=== PATIENT | male | born 1995 ===

== ENCOUNTER 2023-09-22 16:06 | Emergency (ER) | payer OTHER, SELFPAY ==
[2023-09-22 17:14] VITALS: BP 116/68; PULSE 72; RESP 18; TEMP 36.8; O2SAT 97; BMI 21.1
--- NOTE | 2023-09-22 17:16 | ED_ITS ---
HPI - General Adult General Chief complaint: General Medical Stated complaint: Rib pain Time Seen by Provider: 09/22/23 18:28 Source: patient Mode of arrival: ambulatory Limitations: no limitations History of Present Illness HPI narrative: 28 yo male with no sig PMH had unprotected sex with a female back in July has had some burning intermittently at his penis just found out she had chlamydia he also has some R rib pain on and off that is cramping. complaint: STI exposure Onset (ago): month(s) (1) Location: abdomen Radiation: non-radiation Severity: mild Quality: burning Pain Consistency: intermittent Relieving factors: none Exacerbating factors: other (urination) Associated symptoms: denies other symptoms Treatments prior to arrival: none Related Data Previous Rx's Medication Instructions Recorded doxycycline hyclate 100 mg capsule 100 mg PO BID 7 days #13 caps 09/22/23 Allergies Allergy/AdvReac Type Severity Reaction Status Date / Time No Known Allergies Allergy Verified 09/22/23 17:12 Review of Systems 2 Review of Systems: Constitutional : No Weight loss, No Fever, No Chills, ENT/Mouth : No Hearing loss, No Ear Pain, No Nasal Congestion, No Sinus Pain, No Hoarseness, No sore throat, No Rhinorrhea, No Swallowing Difficulty Cardiovascular : No Chest Pain, No SOB Respiratory : No Cough, No Dyspnea Gastrointestinal : No Nausea, No Vomiting, No Diarrhea, No abdominal Pain, No Hematochezia, No Melena Genitourinary : pos Dysuria, No Urinary Frequency, No Hematuria, No Urinary Incontinence, Musculoskeletal : positive back pain Skin : No Skin Lesions, No rash Neuro : No Weakness, No Numbness All other systems reviewed and are negative [facility] Past Medical History Attestation statement: The following information was validated with the patient. Medical History No pertinent past medical history Social History Social History Advance Directives: No Advance Directives Information Provided: No Physical Exam ED Vital Signs: Vital Signs - 24 hr 09/22/23 17:14 Temperature 98.2 F Pulse Rate 72 Respiratory Rate 18 Blood Pressure 116/68 Pulse Oximetry 97 Oxygen Delivery Method Room Air BMI result Body Mass Index 21.1 Appearance: Alert. Oriented X3. No acute distress. Eyes: Pupils equal, round and reactive to light. ENT: Pharynx normal. Neck: Normal inspection. Neck supple. CVS: Normal heart rate and rhythm. Pulses normal. Respiratory: No respiratory distress. Breath sounds normal. Abdomen: Soft and nontender. Skin: Skin warm and dry. Normal skin color. Normal skin turgor. Extremities: No lower extremity edema. Neuro: Oriented X 3. No motor deficit. No sensory deficit. Course Course Course Narrative: This is an RME: Additional HPI, ROS, PE not included below will be deferred to primary provider. patient is a 28-year-old male presents to the ED for intermittent R ABD pain, started in the back and has now present in the abdomen, denies hematuria, history of calculi. Reports dysuria. states he had intercourse in July 2023 and was just made aware that this person tested positive for chlamydia. Denies penile discharge. Plan: labs, urinalysis, CT/ NG Medical Decision Making Medical Decision Making [facility] Narrative: 28 yo male with no sig PMH here with burning and intermittent abdominal pain with normal labs but known chlamydiea exposure at this time abdominal exam is benign will obtain basic labs, treat for chlamydia and instruct if the patinet's pain is not resolve to return for further care Differential Diagnosis Differential Diagnoses: The differential diagnosis associated with the presentation includes STI exposure Admission/Observation Consideration of admission/observation: Escalation of care including admission/observation considered labs stable, abdominal exam benign stable for DC Lab Data [facility] Lab Attestation statement: I reviewed the patient's lab results. 09/22/23 18:01 09/22/23 18:01 Labs: Lab Results 09/22/23 09/22/23 Range/Units 18:01 18:28 WBC 10.3 (4.8-10.8) X10*3/uL RBC 5.38 (4.60-5.80) X10*6/uL Hgb 15.9 (14.0-18.0) g/dl Hct 46.5 (42.0-52.0) % MCV 86.4 (80.0-98.0) fL MCH 29.6 (27.0-33.0) pg MCHC 34.2 (31.0-36.0) g/dl RDW 12.7 (11.0-16.0) % Plt Count 209 (160-400) X10*3/uL MPV 8.5 L (9.4-12.4) fL Immature Gran % (Auto) 0.2 (0.0-0.4) % Neut % (Auto) 63.4 (45-73) % Lymph % (Auto) 28.3 (20-40) % [place] % (Auto) 7.4 (2-11) % Eos % (Auto) 0.4 (0-4) % Baso % (Auto) 0.3 (0-2) % Lymph # (Auto) 2.9 (1.2-4.9) X10*3/uL [place] # (Auto) 0.8 (0.1-1.2) X10*3/uL Eos # (Auto) 0.0 (0.0-0.4) X10*3/uL Baso # (Auto) 0.0 (0.0-0.2) X10*3/uL Abs Immat Gran (auto) 0.02 (0.00-0.03) X10*3/uL Absolute Neuts (auto) 6.5 (2.0-8.3) x10*3/uL Absolute Nucleated RBC 0.000 (0.0-0.012) X10*3/uL Nucleated RBC % (auto) 0.0 (0.0-0.2) /100WBC Sodium 136 (135-145) mmol/L Potassium 4.5 (3.3-5.1) mmol/L Chloride 103 (96-108) mmol/L Carbon Dioxide 28 (22-29) mmol/L Anion Gap 10 L (12-20) BUN 16 (9-16) mg/dL Creatinine 0.80 (0.5-1.4) mg/dL Estim Creat Clear Calc 147.4 Estimated GFR > 60 Random Glucose 85 (60-115) mg/dL Calcium 9.6 (8.4-10.2) mg/dL Total Bilirubin 0.3 (0.0-1.0) mg/dL AST 16 (5-37) U/L ALT 8 (0-40) U/L Alkaline Phosphatase 47 (39-117) U/L Total Protein 7.7 (6.5-8.0) g/dL Albumin 4.6 (3.5-5.0) g/dL Lipase 21 (8-78) U/L Urine Color Yellow Urine Appearance Clear Urine pH 5.5 (5.0-9.0) Ur Specific [place] 1.020 (1.005-1.025) Urine Protein Negative (Neg-Trace) mg/dL Urine Glucose (UA) Negative (Negative) mg/dL Urine Ketones Negative (Negative) mg/dL Urine Blood Negative (Negative) Urine Nitrite Negative (Negative) Ur Leukocyte Esterase Negative (Negative) Prescription Management I considered prescription management with: Antibiotic Discharge Plan Discharge Clinical Impression: Sexually transmitted disease exposure Patient Disposition: Home, Self-Care Instructions: Chlamydia (ED) Additional Instructions: your STD tests are pending we will call you if positive. take and finish the antibiotics. practice safe sex. no sex for 1 week. if your pain in rib area is still persistent after treatment please get looked at again. return for worsening symptoms, fevers, pain or any other concerns. On doxycycline, do not take pills immediately before going to bed and swallow pills with plenty of water. Avoid direct sunlight, iron, antacids, and Pepto Bismol. Call your provider if you develop new ringing in your ears, new problems hearing, dizziness, difficulty swallowing, rash, abdominal discomfort, nausea, or diarrhea.? Prescriptions: New doxycycline hyclate 100 mg capsule 100 mg PO BID 7 Days Qty: 13 0RF
[2023-09-22 18:07] LABS: MANUAL DIFF FLAG NO
[2023-09-22 18:09] LABS: Basophils Percent Auto 0.3 % (0-2); Eosinophils Percent Auto 0.4 % (0-4); Hematocrit 46.5 % (42.0-52.0); Hemoglobin 15.9 g/dl (14.0-18.0); Imm Gran Abs Auto 0.02 X10*3/uL (0.00-0.03); Imm Gran Pct Auto 0.2 % (0.0-0.4); Lymphocytes Absolute Auto 2.9 X10*3/uL (1.2-4.9); Lymphocytes Percent Auto 28.3 % (20-40); Mean Corpuscular HGB Conc 34.2 g/dl (31.0-36.0); Mean Corpuscular Hemoglobin 29.6 pg (27.0-33.0); Mean Corpuscular Volume 86.4 fL (80.0-98.0); Mean Platelet Volume 8.5 fL (9.4-12.4); Monocytes Absolute Auto 0.8 X10*3/uL (0.1-1.2); Monocytes Percent Auto 7.4 % (2-11); Neutrophils Absolute Auto 6.5 x10*3/uL (2.0-8.3); Neutrophils Percent Auto 63.4 % (45-73); Platelet Count 209 X10*3/uL (160-400); Red Blood Count 5.38 X10*6/uL (4.60-5.80); Red Cell Distribution Width 12.7 % (11.0-16.0); White Blood Count 10.3 X10*3/uL (4.8-10.8)
[2023-09-22 18:25] LABS: Alanine Aminotransferase 8 U/L (0-40); Albumin Level 4.6 g/dL (3.5-5.0); Alkaline Phosphatase 47 U/L (39-117); Anion Gap 10 (12-20); Aspartate Amino Transferase 16 U/L (5-37); Bilirubin Total 0.3 mg/dL (0.0-1.0); Blood Urea Nitrogen 16 mg/dL (9-16); Calcium 9.6 mg/dL (8.4-10.2); Carbon Dioxide 28 mmol/L (22-29); Chloride 103 mmol/L (96-108); Creatinine Clr Calc Pharmacy 147.4; Estimated Glomerular Filt Rate > 60; Glucose Random 85 mg/dL (60-115); Lipase 21 U/L (8-78); Potassium 4.5 mmol/L (3.3-5.1); Sodium 136 mmol/L (135-145); Total Protein 7.7 g/dL (6.5-8.0)
[2023-09-22 18:38] LABS: Appearance Urine Clear; Color Urine Yellow; Glucose Urine UA Negative (Negative); Leukocyte Esterase Urine Negative (Negative); Nitrite Urine Negative (Negative); PH 5.5 (5.0-9.0); Urine Blood Negative (Negative); Urine Ketones Negative (Negative); Urine Protein Negative (Neg-Trace)
--- OUTSIDE RECORDS SUMMARY | 2023-09-22 18:38 | XMS_ITS | Continuity of Care Document ---
Author Name Unknown Organization [facility] Address [address] [place] [address]- Care Team Providers Care Pharmacy Technician Instructor Name Role Phone Karen ARTEAGA, Jed Chavarria Primary Care Physician [phone] [facility] Date(s): 12/06/21 - 12/13/21 [facility] [address] [place] [address]- Attending Physician: Ce Awad MD Referring Physician: Not on Staff, Referring
--- OUTSIDE RECORDS SUMMARY | 2023-09-22 18:38 | XMS_ITS | Continuity of Care Document ---
Author Name Unknown Organization [facility] Address [address] [place] [address]- Care Team Providers Care Orchestrator Name Role Phone Karen ARTEAGA, Jed Chavarria Primary Care Physician [phone] [place] [facility] [facility] [place] [id number] Date(s): 12/06/21 - 01/05/22 [facility] [address] [place] [address]- Attending Physician: Yunior Richard Admitting Physician: Yunior Richard Referring Physician: Yunior Richard
[2023-09-22] MEDS: Doxycycline Monohydrate 100 MG CAPSULE PO (19:11)
[2023-09-23 03:24] LABS: CT PCR NOT DETECTED (Not Detect.); NG PCR NOT DETECTED (Not Detect.)
== END 2023-09-22 19:18 | disposition home or self-care (01) ==
PROVIDERS: Nurse Practitioner Family; Emergency Provider Emergency Medicine
DX: R07.81 Pleurodynia (principal); N48.89 Other specified disorders of penis; Z20.2 Contact with and (suspected) exposure to infections with a predominantly sexual mode of transmission; Z79.899 Other long term (current) drug therapy
CPT/HCPCS: 0353U; 36415; 80053; 81003; 83690; 85025; 99282; 99283

== ENCOUNTER 2023-11-10 15:55 | Emergency (ER) | payer OTHER, SELFPAY ==
[2023-11-10 18:38] VITALS: BP 107/47; PULSE 62; RESP 16; TEMP 36.6; O2SAT 95; BMI 21.2
--- NOTE | 2023-11-10 19:07 | ED_ITS ---
HPI - General Adult General Chief complaint: Eye Problems Stated complaint: possible pinkeye Time Seen by Provider: 11/10/23 19:07 Source: patient and RN notes reviewed Limitations: no limitations History of Present Illness HPI narrative: 28-year-old male who denies significant past medical history presents for evaluation of pain to the right eye. Patient states that 1 week ago he ended up sleeping with his contacts in. Since that time he had irritation to the right eye. Patient states that he continue to wear his contacts during this time. He also reports redness, and swelling of the eyelid. This has since improved however the patient still has residual redness. He denies any tearing. No diplopia or blurred vision. He denies any trauma. Patient reports history of similar symptoms in the past. Related Data Previous Rx's Medication Instructions Recorded doxycycline hyclate 100 mg capsule 100 mg PO BID 7 days #13 caps 09/22/23 ciprofloxacin HCl 0.3 % eye drops 1 drp ophthalmic-Right Q4H 7 days 11/10/23 #2.5 mL Allergies Allergy/AdvReac Type Severity Reaction Status Date / Time No Known Allergies Allergy Verified 11/10/23 18:41 Review of Systems Eyes: Eyes: Denies blind spots, Denies change in vision, Denies loss of peripheral vision, Denies other visual disturbances, Reports eye pain (Mild), Reports requires corrective lenses and Denies photophobia PMFSH Past Medical History Medical History No pertinent past medical history Social History Social History Alcohol intake: current Alcohol intake frequency: holidays/special occasions only Smoked in Last 30 Days: No Use of substances other than those prescribed or required for medical reasons: Yes Substance Use Type: Marijuana Advance Directives: No Physical Exam ED Vital Signs: Vital Signs - 24 hr 11/10/23 18:38 Temperature 98 F Pulse Rate 62 Respiratory Rate 16 Blood Pressure 107/47 L Pulse Oximetry 95 Oxygen Delivery Method Room Air BMI result Body Mass Index 21.2 Const General: alert and awake Orientation/consciousness: patient oriented x3 Eyes Other: Visual acuity and visual eldr[place] are intact. There is slight injection to the right eye. There is no draining or discharge. Patient currently has his contacts in both eyes. Patient removed the contact of the right eye per the provider's request without difficulty. Funduscopic on undilated eyes does not reveal any papilledema. Fluorescein staining demonstrates uptake at the 10 o'clock position over the iris. No Esteban sign. No foreign bodies noted under the lids. Direct Ophthalmoscopy: No photophobia Neuro General: patient oriented x3 Medications Administered Discontinued Medications Generic Name Dose Route Start Last Admin Trade Name Shira PRN Reason Stop Dose Admin Fluorescein Sodium 1 strip 11/10/23 19:09 11/10/23 19:21 Fluorescein Sodium Strip EYE-RIGHT 11/10/23 19:10 1 strip ONCE ONE Administration Tetracaine HCl 1 drop 11/10/23 19:09 11/10/23 19:21 Tetracaine Hcl 0.5% Oph [place] 5 Ml Drops EYE-RIGHT 11/10/23 19:10 1 drop ONCE ONE Administration Medical Decision Making Medical Decision Making MDM Narrative: 28-year-old male with redness and pain to the right eye secondary to prolonged and consistent contact lens use. Concern for corneal abrasion. Discussed with the patient possibility of corneal ulcer. However given that symptoms are improving less likely to be ulceration. Will provide ophthalmology follow-up. In addition I have had extensive discussion with the patient regarding proper care of his contact lenses and avoiding prolonged use. Also advised no contact use for at least 1 week to the right eye. Patient is in agreement with this. He also reports that he has a new set of contacts at home. Reviewed all discharge instructions. No further questions at this time. Differential Diagnosis Differential Diagnoses: The differential diagnosis associated with the present ation includes Iritis Corneal abrasion Conjunctivitis Foreign body Discharge Plan Discharge Clinical Impression: Abrasion, corneal Qualifiers: Encounter type: initial encounter Laterality: right Qualified Code(s): S05.01XA - Injury of conjunctiva and corneal abrasion without foreign body, right eye, initial encounter Patient Disposition: Home, Self-Care Instructions: Corneal Abrasion (ED) Additional Instructions: Do not sleep with your contacts. Do not wear the contact in your right eye for at least 1 week. Antibiotic drops as directed. Follow-up with community engagement specialist. Follow-up with your primary care provider. Call this week to schedule a follow- up appointment. Return to the emergency department if you have any worsening of symptoms, or any concerns. Get well soon! Prescriptions: New ciprofloxacin HCl 0.3 % drops 1 drp ophthalmic-Right Q4H 7 Days Qty: 2.5 0RF No Action doxycycline hyclate 100 mg capsule 100 mg PO BID 7 Days Qty: 13 0RF Referrals: Cristina CHARLES JR [Physician] - 1 week Stand Alone Forms: Work/School Release Interventions: ED Discharge Assessment Last Done: 11/10/23 19:58 Discharge Date/Time: 11/10/23 19:59
[2023-11-10] MEDS: Tetracaine HCl 0.5% Oph Sol 5 ML DROPS 1 DROP EYE-RIGHT (19:21)
[2023-11-10] MEDS: Fluorescein Sodium STRIP 1 STRIP EYE-RIGHT (19:21)
== END 2023-11-10 19:59 | disposition home or self-care (01) ==
PROVIDERS: Emergency Provider Student in an Organized Health Care Education/Training Program
DX: H18.821 Corneal disorder due to contact lens, right eye (principal); H57.11 Ocular pain, right eye
CPT/HCPCS: 99283; 99284

== ENCOUNTER 2024-05-10 19:56 | Emergency (ER) | payer OTHER, SELFPAY ==
[2024-05-10 19:57] VITALS: BP 116/74; PULSE 85; RESP 17; TEMP 37.1; O2SAT 96; BMI 19.6
--- NOTE | 2024-05-10 20:00 | ED.GENADULT ---
HPI - General Adult General Chief complaint: Wound/Laceration Stated complaint: Work inj - fing lac Time Seen by Provider: 05/10/24 21:14 Source: patient Mode of arrival: ambulatory Limitations: no limitations History of Present Illness ED Provider: Dr. Emerita Swift HPI narrative: patient comes to the emergency room complaining of a laceration to the dorsum of the thumb of the left hand. 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 Patient states that the pain is localized, states that he has no problem moving any of his fingers including the thumb. Patient is not sure when he had his last Tdap injection Related Data Previous Rx's ?Medication ?Instructions ?Recorded doxycycline hyclate 100 mg capsule 100 mg PO BID 7 days #13 caps 09/22/23 ciprofloxacin HCl 0.3 % eye drops 1 drp ophthalmic-Right Q4H 7 days 11/10/23 #2.5 mL Allergies Allergy/AdvReac Type Severity Reaction Status Date / Time No Known Allergies Allergy Verified 05/10/24 19:58 Review of Systems Review of Systems: Constitutional : No Weight loss, No Fever, No Chills, No Night Sweats, No Fatigue, No Malaise ENT/Mouth : No Hearing loss, No Ear Pain, No Nasal Congestion, No Sinus Pain, No Hoarseness, No sore throat, No Rhinorrhea, No Swallowing Difficulty Eyes: No Eye Pain, No Swelling, No Redness, No Foreign Body, No Discharge, No Vision Changes Cardiovascular : No Chest Pain, No SOB, No Dyspnea on Exertion, No Orthopnea, No Edema, No Palpitations Respiratory : No Cough, No Sputum, No Wheezing, No Smoke Exposure, No Dyspnea Gastrointestinal : No Nausea, No Vomiting, No Diarrhea, No Constipation, No abdominal Pain, No Hematochezia, No Melena Genitourinary : no irregular bleeding, No Dysuria, No Urinary Frequency, No Hematuria, No Urinary Incontinence, No Urgency, No Flank Pain, No Urinary Flow Changes, No Hesitancy Musculoskeletal : No joint pain, No Myalgias, No Joint Swelling Skin : complaining of a laceration to the dorsum of the thumb of the left hand Neuro : No Weakness, No Numbness, No Paresthesias, No Loss of Consciousness, No Dizziness, No Headache Psych : No Anxiety/Panic, No Depression, No SI/HI/AH/VH, No Social Issues, Heme/Lymph: No Bruising, No Bleeding,No Lymphadenopathy Endocrine : No Polyuria, No Polydipsia, No Temperature Intolerance [facility] Past Medical History Medical History No pertinent past medical history Social History Social History Alcohol intake: current Alcohol intake frequency: holidays/special occasions only Substance Use Type: Marijuana Advance Directives: No Advance Directives Information Provided: No Do you have a plan to hurt others: No Plan Physical Exam ED Vital Signs: Vital Signs - 24 hr 05/10/24 19:57 Temperature 98.7 F Pulse Rate 85 Respiratory Rate 17 Blood Pressure 116/74 Pulse Oximetry 96 Oxygen Delivery Method Room Air BMI result Body Mass Index 19.6 Const Other: Appearance: Alert. Oriented X3. No acute distress. Eyes: Pupils equal, round and reactive to light. ENT: Pharynx normal. Neck: Normal inspection. Neck supple. No lymph nodes noted. No crepitus CVS: Normal heart rate and rhythm. Pulses normal. Normal S1 and S2 Respiratory: No respiratory distress. Breath sounds normal. No Wheezing. No rales Abdomen: Soft and nontender. No rigidity. No distention. Skin: Skin warm and dry. Normal skin color. Normal skin turgor. Extremities: No lower extremity edema. No Lacerations. No Rash, there is a 2 cm laceration to the dorsum of the thumb of the left hand. Bleeding controlled. Patient able to flex and extend the thumb and oppose the thumb. Neuro: Oriented X 3. No motor deficit. No sensory deficit. Moving all extremities. No slurred speech. CN 2 through 12 grossly intact Psych: calm, cooperative, normal affect Course Course Course Narrative: RME performed by Leona Osborne PA-C. Patient is a 29 year old assigned male at presenting to the emergency department with a left thumb laceration. 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 Detailed physical exam and review of systems are deferred to the rigging and controls aircraft mechanic. Patient placed back in the waiting room pending room availability. Medications Administered Discontinued Medications Generic Name Dose Route Start Last Admin Trade Name Freq PRN Reason Stop Dose Admin Diphtheria/Tetanus/Acell Pertussis 0.5 ml 05/10/24 21:33 05/10/24 21:40 Diphth,Pertus(Acell),Tet Adult 0.5 Ml Syringe IM 05/10/24 21:34 0.5 ml .ONCE ONE Administration Lidocaine HCl 6 ml 05/10/24 21:33 05/10/24 21:40 Lidocaine Hcl 2% 2 Ml Vial INFILTRATI 05/10/24 21:34 6 ml ONCE ONE Administration Procedures Laceration Laceration 1: Site: hand Side (If applicable): left and right Size (cm): 2 Description: linear Depth: simple, single layer Local Anesthetic: lidocaine 2% Amount of anesthesia used (mL): 5 Pre-repair: wound explored Skin layer closed with: nylon Size (cm): 4-0 Number of sutures: 5 Technique: simple, interrupted Medical Decision Making Medical Decision Making MDM Narrative: - I discussed the physical exam with the patient, patient will need stitches. Patient is thumb movement no position within normal limits. No tendons visualized. wound was visualized under a bloodless field. - Patient received 5 stitches - received Tdap booster Discharge Plan Discharge Clinical Impression: Laceration Patient Disposition: Home, Self-Care Instructions: Finger Laceration (ED) Additional Instructions: your stitches need to be removed in 7-10 days. Please follow-up with your primary care physician tomorrow. If you have any worsening or new symptoms, please return to the emergency room or call 911 Prescriptions: No Action ciprofloxacin HCl 0.3 % drops 1 drp ophthalmic-Right Q4H 7 Days Qty: 2.5 0RF doxycycline hyclate 100 mg capsule 100 mg PO BID 7 Days Qty: 13 0RF Stand Alone Forms: Work/School Release Print Language: Yoruba
[2024-05-10] MEDS: Diphth,Pertus(ACell),Tet Adult 0.5 ML SYRINGE IM (21:40)
[2024-05-10 21:56] VITALS: BP 132/63; PULSE 61; RESP 18; TEMP 36.6; O2SAT 100
[2024-05-10 22:00] VITALS: BP 132/63; PULSE 61; RESP 18; TEMP 36.6; O2SAT 100
== END 2024-05-10 22:00 | disposition home or self-care (01) ==
PROVIDERS: Emergency Provider Emergency Medicine
DX: S61.011A Laceration without foreign body of right thumb without damage to nail, initial encounter (principal); S61.412A Laceration without foreign body of left hand, initial encounter; S61.411A Laceration without foreign body of right hand, initial encounter; W26.0XXA Contact with knife, initial encounter; Y93.9 Activity, unspecified; Y92.9 Unspecified place or not applicable; Y99.0 Civilian activity done for income or pay; Z23 Encounter for immunization
CPT/HCPCS: 12001; 90471; 90715; 99284

== ENCOUNTER 2024-05-11 12:49 | Emergency (ER) | payer OTHER, SELFPAY ==
[2024-05-11 13:02] VITALS: BP 128/79; PULSE 66; RESP 18; TEMP 36.7; O2SAT 98; BMI 19.3
--- NOTE | 2024-05-11 13:02 | ED_ITS ---
HPI - Skin/Abscess/Foreign Bdy General Chief complaint: Wound/Laceration Stated complaint: Suture came out L thumb Time Seen by Provider: 05/11/24 13:26 Source: patient and RN notes reviewed Mode of arrival: ambulatory Limitations: no limitations History of Present Illness ED Provider: Leni Mejia PA-C HPI narrative: This is a 29-year-old male who presents emergency department with complaints of left thumb wound check. 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 He states that he did not cover the wound and went to bed. He states that he awoke with blood all over his bed and feels as though 1 of his sutures popped out. He denies any fevers or chills. No other complaints or concerns at this time. MD complaint: laceration Onset (ago): day(s) Tetanus up to date: yes Relieving factors: none Exacerbating factors: none Context: none Related Data Previous Rx's ?Medication ?Instructions ?Recorded doxycycline hyclate 100 mg capsule 100 mg PO BID 7 days #13 caps 09/22/23 ciprofloxacin HCl 0.3 % eye drops 1 drp ophthalmic-Right Q4H 7 days 11/10/23 #2.5 mL cephalexin 500 mg capsule 500 mg PO QID 7 days #28 caps 05/11/24 Allergies Allergy/AdvReac Type Severity Reaction Status Date / Time No Known Allergies Allergy Verified 05/11/24 13:04 Review of Systems Review of Systems: Yes all other systems are reviewed and are negative Constitutional: Constitutional: Reports as per HPI [facility] Past Medical History Medical History No pertinent past medical history Social History Social History Alcohol intake: current Alcohol intake frequency: holidays/special occasions only Substance Use Type: Marijuana Advance Directives: No Advance Directives Information Provided: Yes Do you have a plan to hurt others: No Plan Physical Exam Vital Signs: Vital Signs: Last Vital Signs Temp 98.0 F 05/11/24 13:02 Pulse 66 05/11/24 13:02 Resp 18 05/11/24 13:02 BP 128/79 05/11/24 13:02 Pulse Ox 98 06/29/24 13:02 O2 Del Method Room Air 05/11/24 13:02 BMI result Body Mass Index 19.3 Const: General: cooperative, comfortable and no acute distress Orientation/consciousness: patient oriented x3 Limitations: no limitations HEENT: Head: Yes normal to inspection, Yes normocephalic and Yes atraumatic Ears: hearing grossly normal bilaterally General nose exam: Normal external nose present Face and sinus: Yes normal facial exam Mouth: Normal oral and palatal mucosa present, oropharynx normal and moist mucous membranes Throat: Yes posterior oropharynx normal Eyes: General: appearance normal, both eyes and all related structures Eyelids: Yes eyelids normal Conjunctivae: conjunctivae normal Sclerae: sclerae normal Pupils: Equal, round and reactive pupils present EOM: EOMs intact bilaterally Neck: Neck: Yes normal visual inspection, Yes full ROM and Yes no lymphadenopathy Lymphatic: no lymphadenopathy noted Chest: Chest palpation & inspection: normal inspection of the chest Resp: Effort & Inspection: normal respiratory effort and able to speak in complete sentences Auscultation: clear to auscultation bilaterally, no crackles, no rales, no rhonchi and no wheezes Cardio: Rate: regular rate Rhythm: regular rhythm Heart sounds: S1 normal heart sound present and S2 normal heart sound present GI: Inspection: Yes normal to inspection Skin: Other: Left thumb dorsal aspect there is a 2 cm linear laceration with [address] at the middle of the laceration there appears to be a missing suture. Some drainage noted, however still well approximated. Mild surrounding erythema and warmth extending to 1st MCP General skin exam: no rashes or lesions noted Trauma: no lacerations or abrasions Wounds: no wounds Neuro: General: patient oriented x3 and moves all extremities Cranial nerves: Yes Equal, round and reactive pupils present Extrem: General: Yes normal to inspection Right upper extremity: normal to inspection Left upper extremity: normal to inspection Right lower extremity: normal to inspection Left lower extremity: normal to inspection Course Course Course Narrative: This is a Rapid Medical Examination (RME) performed by Mana Cheney PA-C in triage. Full HPI, ROS, assessment and treatment plan per primary provider in the Main ED. 29 yo male here for suture check. patient seen in ED yesterday for left thumb laceration which was repaired with 5 sutures. reports waking up this am with blood all over his pillow, noticed the middle suture had popped open. on exam, [address], middle of the laceration open. bleeding controlled. Plan: ?repair Medical Decision Making Medical Decision Making [facility] Narrative: This is a 29-year-old male who presents emergency department with complaints of left thumb laceration. He was seen here yesterday where he had 5 sutures placed. He is here today as he believes 1 of his sutures popped out. On arrival, vital signs within normal limits. Left thumb with missing suture. Given wound is old, as well as wound still well approximated, he does not need a no other suture. However there is some mild erythema surrounding the wound therefore patient is started on Keflex. Given strict return precautions. He has full range of motion of his thumb without difficulty. Patient stable for discharge Differential Diagnosis Differential Diagnoses: The differential diagnosis associated with the presentation includes Cellulitis, wound dehiscence, laceration Admission/Observation Consideration of admission/observation: Escalation of care including admission/observation considered Escalation of care including admission/observation considered however given workup today not warranted at this time. Discharge Plan Discharge Clinical Impression: Encounter for re-check of laceration wound Patient Disposition: Home, Self-Care Instructions: Care For Your Stitches (ED), Laceration (ED) Additional Instructions: Your seen in the emergency department for a wound check It appears that 1 of the sutures that was placed popped out of the wound. Please keep wound clean and dry. Keep wound covered. Do not submerge wound. If it does get wet, pat dry. I am starting you on an antibiotic. Please take full course even if you are feeling better. Watch for any worsening signs including increased redness, swelling drainage. If any of these occur please return for re-evaluation Prescriptions: New cephalexin 500 mg capsule 500 mg PO QID 7 Days Qty: 28 0RF No Action ciprofloxacin HCl 0.3 % drops 1 drp ophthalmic-Right Q4H 7 Days Qty: 2.5 0RF doxycycline hyclate 100 mg capsule 100 mg PO BID 7 Days Qty: 13 0RF Print Language: Swazi
[2024-05-11 13:54] VITALS: BP 128/79; PULSE 66; RESP 18; TEMP 36.7; O2SAT 98
[2024-05-11] MEDS: Bacitracin Oint 0.9 GM PACKET 1 APPL TOPICAL (13:54)
== END 2024-05-11 13:54 | disposition home or self-care (01) ==
PROVIDERS: Emergency Provider Emergency Medicine
DX: Z04.2 Encounter for examination and observation following work accident (principal); Z48.00 Encounter for change or removal of nonsurgical wound dressing; S61.012D Laceration without foreign body of left thumb without damage to nail, subsequent encounter; W31.89XD Contact with other specified machinery, subsequent encounter
CPT/HCPCS: 99282; 99283

== ENCOUNTER 2024-08-19 10:28 | Emergency (ER) | payer SELFPAY ==
[2024-08-19 11:00] VITALS: BP 121/68; PULSE 88; RESP 19; TEMP 36.8; O2SAT 98; BMI 20.7
--- NOTE | 2024-08-19 11:03 | ED.GENADULT ---
HPI - General Adult General Chief complaint: Nausea/Vomiting/Diarrhea Stated complaint: vomiting overheating Time Seen by Provider: 08/19/24 12:47 Source: patient Mode of arrival: ambulatory Limitations: no limitations History of Present Illness ED Provider: Felice Hwang PA-C HPI narrative: 29 yo male presents to the ER for evaluation of nausea, vomiting x2 this morning and general malaise. mom home with similar symptoms and thinks it might be the flu. no abdominal pain, no longer nauseated. no fevers, chest pain or SOB. no coughing, no URI symptoms. feels better now, just getting intermittent hot flashes complaint: n/v, hot flashes Onset (ago): hour(s) Pain Consistency: intermittent Relieving factors: none Associated symptoms: denies other symptoms Treatments prior to arrival: none Related Data Previous Rx's ?Medication ?Instructions ?Recorded doxycycline hyclate 100 mg capsule 100 mg PO BID 7 days #13 caps 09/22/23 ciprofloxacin HCl 0.3 % eye drops 1 drp ophthalmic-Right Q4H 7 days 11/10/23 #2.5 mL cephalexin 500 mg capsule 500 mg PO QID 7 days #28 caps 05/11/24 ondansetron 4 mg disintegrating 4 mg PO Q8H PRN nausea and 08/19/24 tablet vomiting #4 tabs Allergies Allergy/AdvReac Type Severity Reaction Status Date / Time No Known Allergies Allergy Verified 08/19/24 11:02 Review of Systems Review of Systems: Yes all other systems are reviewed and are negative PMFSH Past Medical History Medical History No pertinent past medical history Social History Social History Alcohol intake: current Alcohol intake frequency: holidays/special occasions only Substance Use Type: Marijuana Advance Directives: No Advance Directives Information Provided: Yes Do you have a plan to hurt others: No Plan Physical Exam ED Vital Signs: Vital Signs - 24 hr 08/19/24 11:00 08/19/24 12:55 Temperature 98.3 F 98.3 F Pulse Rate 88 88 Respiratory Rate 19 19 Blood Pressure 121/68 121/68 Pulse Oximetry 98 98 Oxygen Delivery Method Room Air BMI result Body Mass Index 20.7 Appearance: Alert. Oriented X3. No acute distress. Head: normocephalic, atraumatic. Eyes: Pupils equal, round and reactive to light. ENT: Pharynx normal. No tonsillar swelling or exudate. Neck: Normal inspection. Neck supple. CVS: Normal heart rate and rhythm. Pulses normal. Respiratory: No respiratory distress. Breath sounds normal. Abdomen: Soft and nontender. +BS x4 Skin: Skin warm and dry. Normal skin color. Normal skin turgor. No rashes. Extremities: No lower extremity edema. No joint swelling. Neuro/psych: Oriented X 3. grossly normal, nonfocal Course Course Course Narrative: This is a Rapid Medical Examination (RME) performed by Felice Hwang PA-C in triage. Full HPI, ROS, assessment and treatment plan per primary provider in the Main ED. 29 yo male presents to the ER for evaluation of nausea, vomiting x2 this morning and general malaise. mom home with similar symptoms and thinks it might be the flu. no abdominal pain, no longer nauseated. no fevers, chest pain or SOB. VSS in triage Plan: viral PCR Medical Decision Making Medical Decision Making [facility] Narrative: 29 yo otherwise healthy male presenting to the ER for evaluation after he became nauseated and vomited x2 today. had hot flashes at work. mom is home sick with similar symptoms. VSS in triage. his exam is reassuring no abdominal pain or tenderness. viral PCR testing is negative. no vomiting here. he is feeling better. asking for a work note. comfortable w/ discharge home, supportive care, outpatient follow up and return if worsening. Differential Diagnosis Differential Diagnoses: The differential diagnosis associated with the presentation includes covid, flu, gastroenteritis, dehydration, low suspicion for acute abdominal process Lab Data [facility] Lab Attestation statement: I reviewed the patient's lab results. negative viral swab Labs: Lab Results 08/19/24 Range/Units 11:05 Influenza Type A (PCR) NEGATIVE (Negative) Influenza Type B (PCR) NEGATIVE (Negative) RSV RNA Qual (PCR) NEGATIVE (Negative) SARS-CoV-2 RNA (RT-PCR) NEGATIVE (Negative) External Record Review External record reviewed: Prior outpatient labs Tests considered The following testing was considered but not selected: basic labs considered, low suspicion for dehydration or acute metabolic derangement Prescription Management I considered prescription management with: Antiviral and Other (antiemetic) Critical Care Time Critical Care Time Critical Care Time: No Discharge Plan Discharge Clinical Impression: Gastroenteritis Patient Disposition: Home, Self-Care Instructions: Gastroenteritis (DC) Additional Instructions: You tested negative for COVID, Flu, and RSV You most likely have a viral GI bug also known as gastroenteritis. Treatment is supportive care, symptoms usually resolve on their own in 48-72 hours. Recommend rest and plenty of oral hydration. Stick to a bland diet like soup and toast while you are not feeling well. Take the prescribed medication as needed for nausea. Recommend over the counter Pepto Bismol or Imodium for upset stomach and diarrhea. Follow up with your doctor as needed. If you develop new or worsening symptoms call 911 or come back to the ER for further evaluation. Prescriptions: New ondansetron 4 mg tablet,disintegrating 4 mg PO Q8H PRN (Reason: nausea and vomiting) Qty: 4 0RF No Action ciprofloxacin HCl 0.3 % drops 1 drp ophthalmic-Right Q4H 7 Days Qty: 2.5 0RF cephalexin 500 mg capsule 500 mg PO QID 7 Days Qty: 28 0RF doxycycline hyclate 100 mg capsule 100 mg PO BID 7 Days Qty: 13 0RF Stand Alone Forms: Work/School Release Interventions: ED Discharge Assessment Last Done: 08/19/24 12:55 Discharge Date/Time: 08/19/24 12:55 Print Language: Puerto Rican
[2024-08-19 11:49] LABS: Influenza A PCR NEGATIVE (Negative); Influenza B PCR NEGATIVE (Negative); Resp Syncy Virus RNA Qual PCR NEGATIVE (Negative); SARS COV2 PCR INHOUSE NEGATIVE (Negative)
[2024-08-19 12:55] VITALS: BP 121/68; PULSE 88; RESP 19; TEMP 36.8; O2SAT 98
== END 2024-08-19 12:55 | disposition home or self-care (01) ==
LOC: HO.ED 12:54
PROVIDERS: Physician Assistant; Emergency Provider Emergency Medicine
DX: K52.9 Noninfective gastroenteritis and colitis, unspecified (principal); R11.2 Nausea with vomiting, unspecified; Z03.818 Encounter for observation for suspected exposure to other biological agents ruled out; R53.81 Other malaise
CPT/HCPCS: 0241U; 99282; 99283

== ENCOUNTER 2024-08-20 17:21 | Emergency (ER) | payer SELFPAY ==
[2024-08-20 18:00] VITALS: BP 127/77; PULSE 79; RESP 18; TEMP 36.8; O2SAT 98; BMI 19.7
--- NOTE | 2024-08-20 18:04 | ED.GENADULT ---
HPI - General Adult General Chief complaint: Nausea/Vomiting/Diarrhea Stated complaint: GI Bug Time Seen by Provider: 08/20/24 20:21 Source: patient Mode of arrival: ambulatory Limitations: no limitations History of Present Illness ED Provider: heavenly CARABALLO narrative: Patient has been vomiting since yesterday about 2 times with nausea today only once no diarrhea was seen here yesterday came here as he was feeling sick earlier now feeling better no fever no chills patient's COVID and flu tests were negative yesterday Related Data Previous Rx's ?Medication ?Instructions ?Recorded doxycycline hyclate 100 mg capsule 100 mg PO BID 7 days #13 caps 09/22/23 ciprofloxacin HCl 0.3 % eye drops 1 drp ophthalmic-Right Q4H 7 days 11/10/23 #2.5 mL cephalexin 500 mg capsule 500 mg PO QID 7 days #28 caps 05/11/24 ondansetron 4 mg disintegrating 4 mg PO Q8H PRN nausea and 08/19/24 tablet vomiting #4 tabs Allergies Allergy/AdvReac Type Severity Reaction Status Date / Time No Known Allergies Allergy Verified 08/20/24 18:01 Review of Systems Review of Systems: Yes all other systems are reviewed and are negative [facility] Past Medical History Medical History No pertinent past medical history Social History Social History Alcohol intake: current Alcohol intake frequency: holidays/special occasions only Substance Use Type: Marijuana Advance Directives: No Advance Directives Information Provided: No Physical Exam ED Vital Signs: Vital Signs - 24 hr 08/20/24 18:00 08/20/24 21:06 Temperature 98.2 F 98.2 F Pulse Rate 79 79 Respiratory Rate 18 18 Blood Pressure 127/77 127/77 Pulse Oximetry 98 98 Oxygen Delivery Method Room Air Room Air BMI result Body Mass Index 19.7 Appearance: Alert. Oriented X3. No acute distress. Eyes: PERRLA, No Nystagmus ENT: Pharynx normal. Oral Mucosa moist Neck: Normal inspection. Neck supple. CVS: Normal heart rate and rhythm. Pulses normal. Respiratory: No respiratory distress. Equal air entry bilateral, no wheezing/rales/rhonchi Abdomen: Soft and nontender. Bowel sounds are present, no mass palpable, no CVA tenderness Skin: Skin warm and dry. Normal skin color. Normal skin turgor. Extremities: No lower extremity edema. No calf tenderness Neuro: Oriented X 3. Course Course Course Narrative: RME: 29-year-old male presents to ED for nausea fatigue vomiting. Patient was seen yesterday with similar symptoms and informed that he had gastroenteritis. Patient denies any abdominal pain just vomiting. Patient denies any longer having diarrhea. Abdominal exam benign. will order basic labs. Medical Decision Making Medical Decision Making [facility] Narrative: Patient with minor gastroenteritis feeling much better now no vomiting since a.m. taking p.o. fluids will discharge patient home Lab Data [facility] Lab Attestation statement: I reviewed the patient's lab results. 08/20/24 18:34 08/20/24 18:34 Labs: Lab Results 08/20/24 08/20/24 Range/Units 18:34 18:34 WBC 10.8 (4.8-10.8) X10*3/uL RBC 5.46 (4.60-5.80) X10*6/uL Hgb 16.2 (14.0-18.0) g/dl Hct 47.0 (42.0-52.0) % MCV 86.1 (80.0-98.0) fL MCH 29.7 (27.0-33.0) pg MCHC 34.5 (31.0-36.0) g/dl RDW 12.5 (11.0-16.0) % Plt Count 212 (160-400) X10*3/uL MPV 8.9 L (9.4-12.4) fL Immature Gran % (Auto) 0.2 (0.0-0.4) % Neut % (Auto) 64.4 (45-73) % Lymph % (Auto) 27.0 (20-40) % Mathews % (Auto) 7.6 (2-11) % Eos % (Auto) 0.4 (0-4) % Baso % (Auto) 0.4 (0-2) % Lymph # (Auto) 2.9 (1.2-4.9) X10*3/uL Mathews # (Auto) 0.8 (0.1-1.2) X10*3/uL Eos # (Auto) 0.0 (0.0-0.4) X10*3/uL Baso # (Auto) 0.0 (0.0-0.2) X10*3/uL Abs Immat Gran (auto) 0.02 (0.00-0.03) X10*3/uL Absolute Neuts (auto) 7.0 (2.0-8.3) x10*3/uL Absolute Nucleated RBC 0.000 (0.0-0.012) X10*3/uL Nucleated RBC % (auto) 0.0 (0.0-0.2) /100WBC Sodium 139 (135-145) mmol/L Potassium 4.5 (3.3-5.1) mmol/L Chloride 106 (96-108) mmol/L Carbon Dioxide 28 (22-29) mmol/L Anion Gap 10 L (12-20) BUN 25 H (9-16) mg/dL Creatinine 1.03 (0.5-1.4) mg/dL Estim Creat Clear Calc 111.9 Estimated GFR > 60 Random Glucose 90 (60-115) mg/dL Calcium 9.9 (8.4-10.2) mg/dL Total Bilirubin 0.3 (0.0-1.0) mg/dL AST 19 (5-37) U/L ALT 13 (0-40) U/L Alkaline Phosphatase 47 (39-117) U/L Total Protein 7.7 (6.5-8.0) g/dL Albumin 4.5 (3.5-5.0) g/dL Lipase 21 21 (8-78) U/L Urine Color Yellow Urine Appearance Clear Urine pH 5.5 (5.0-9.0) Ur Specific [place] >= 1.030 H (1.005-1.025) Urine Protein Negative (Neg-Trace) mg/dL Urine Glucose (UA) Negative (Negative) mg/dL Urine Ketones Negative (Negative) mg/dL Urine Blood Negative (Negative) Urine Nitrite Negative (Negative) Ur Leukocyte Esterase Negative (Negative) Discharge Plan Discharge Clinical Impression: Nausea & vomiting Patient Disposition: Home, Self-Care Instructions: Acute Nausea and Vomiting (ED) Additional Instructions: Drink plenty of fluid Take nausea medication as prescribed yesterday for vomiting as needed Follow with PCP if any concerns Prescriptions: No Action ciprofloxacin HCl 0.3 % drops 1 drp ophthalmic-Right Q4H 7 Days Qty: 2.5 0RF cephalexin 500 mg capsule 500 mg PO QID 7 Days Qty: 28 0RF ondansetron 4 mg tablet,disintegrating 4 mg PO Q8H PRN (Reason: nausea and vomiting) Qty: 4 0RF doxycycline hyclate 100 mg capsule 100 mg PO BID 7 Days Qty: 13 0RF Stand Alone Forms: Work/School Release Interventions: ED Discharge Assessment Last Done: 08/20/24 21:06 Discharge Date/Time: 08/20/24 21:07 Print Language: Icelandic
[2024-08-20 18:39] LABS: MANUAL DIFF FLAG NO
[2024-08-20 18:40] LABS: Basophils Percent Auto 0.4 % (0-2); Eosinophils Percent Auto 0.4 % (0-4); Hemoglobin 16.2 g/dl (14.0-18.0); Imm Gran Abs Auto 0.02 X10*3/uL (0.00-0.03); Imm Gran Pct Auto 0.2 % (0.0-0.4); Lymphocytes Absolute Auto 2.9 X10*3/uL (1.2-4.9); Mean Corpuscular HGB Conc 34.5 g/dl (31.0-36.0); Mean Corpuscular Hemoglobin 29.7 pg (27.0-33.0); Mean Corpuscular Volume 86.1 fL (80.0-98.0); Mean Platelet Volume 8.9 fL (9.4-12.4); Monocytes Absolute Auto 0.8 X10*3/uL (0.1-1.2); Monocytes Percent Auto 7.6 % (2-11); Neutrophils Percent Auto 64.4 % (45-73); Platelet Count 212 X10*3/uL (160-400); Red Blood Count 5.46 X10*6/uL (4.60-5.80); Red Cell Distribution Width 12.5 % (11.0-16.0); White Blood Count 10.8 X10*3/uL (4.8-10.8)
[2024-08-20 18:41] LABS: Appearance Urine Clear; Color Urine Yellow; Glucose Urine UA Negative (Negative); Leukocyte Esterase Urine Negative (Negative); Nitrite Urine Negative (Negative); PH 5.5 (5.0-9.0); Specific Gravity - Urine >= 1.030 (1.005-1.025); Urine Blood Negative (Negative); Urine Ketones Negative (Negative); Urine Protein Negative (Neg-Trace)
[2024-08-20 18:53] LABS: Lipase 21 U/L (8-78)
[2024-08-20 18:55] LABS: Alanine Aminotransferase 13 U/L (0-40); Albumin Level 4.5 g/dL (3.5-5.0); Alkaline Phosphatase 47 U/L (39-117); Anion Gap 10 (12-20); Aspartate Amino Transferase 19 U/L (5-37); Bilirubin Total 0.3 mg/dL (0.0-1.0); Blood Urea Nitrogen 25 mg/dL (9-16); Calcium 9.9 mg/dL (8.4-10.2); Carbon Dioxide 28 mmol/L (22-29); Chloride 106 mmol/L (96-108); Creatinine Clr Calc Pharmacy 111.9; Estimated Glomerular Filt Rate > 60; Glucose Random 90 mg/dL (60-115); Lipase 21 U/L (8-78); Potassium 4.5 mmol/L (3.3-5.1); Sodium 139 mmol/L (135-145); Total Protein 7.7 g/dL (6.5-8.0)
[2024-08-20 21:06] VITALS: BP 127/77; PULSE 79; RESP 18; TEMP 36.8; O2SAT 98
== END 2024-08-20 21:07 | disposition home or self-care (01) ==
PROVIDERS: Physician Assistant; Emergency Provider Internal Medicine
DX: K52.9 Noninfective gastroenteritis and colitis, unspecified (principal); R11.2 Nausea with vomiting, unspecified; F12.90 Cannabis use, unspecified, uncomplicated
CPT/HCPCS: 36415; 80053; 81003; 83690; 85025; 99282; 99283

== ENCOUNTER 2024-11-25 20:31 | Emergency (ER) | payer OTHER, SELFPAY ==
[2024-11-25 21:52] VITALS: BP 118/67; PULSE 82; RESP 18; TEMP 37; O2SAT 97; BMI 21.3
[2024-11-25 22:18] LABS: MANUAL DIFF FLAG NO
[2024-11-25 22:21] LABS: Basophils Percent Auto 0.2 % (0-2); Eosinophils Percent Auto 0.1 % (0-4); Hematocrit 43.4 % (42.0-52.0); Imm Gran Abs Auto 0.05 X10*3/uL (0.00-0.03); Imm Gran Pct Auto 0.4 % (0.0-0.4); Lymphocytes Percent Auto 7.5 % (20-40); Mean Corpuscular HGB Conc 34.6 g/dl (31.0-36.0); Mean Corpuscular Hemoglobin 29.5 pg (27.0-33.0); Mean Corpuscular Volume 85.4 fL (80.0-98.0); Mean Platelet Volume 8.6 fL (9.4-12.4); Monocytes Absolute Auto 0.9 X10*3/uL (0.1-1.2); Monocytes Percent Auto 6.2 % (2-11); Neutrophils Absolute Auto 11.7 x10*3/uL (2.0-8.3); Neutrophils Percent Auto 85.6 % (45-73); Platelet Count 264 X10*3/uL (160-400); Red Blood Count 5.08 X10*6/uL (4.60-5.80); Red Cell Distribution Width 13.1 % (11.0-16.0); White Blood Count 13.7 X10*3/uL (4.8-10.8)
[2024-11-25 22:39] LABS: Alanine Aminotransferase 19 U/L (0-40); Albumin Level 3.9 g/dL (3.5-5.0); Alkaline Phosphatase 43 U/L (39-117); Anion Gap 12 (12-20); Aspartate Amino Transferase 22 U/L (5-37); Bilirubin Total 0.5 mg/dL (0.0-1.0); Blood Urea Nitrogen 12 mg/dL (9-16); Calcium 8.7 mg/dL (8.4-10.2); Carbon Dioxide 26 mmol/L (22-29); Chloride 106 mmol/L (96-108); Creatinine Clr Calc Pharmacy 166.1; Estimated Glomerular Filt Rate > 60; Potassium 3.8 mmol/L (3.3-5.1); Sodium 140 mmol/L (135-145); Total Protein 6.9 g/dL (6.5-8.0)
[2024-11-25 22:47] LABS: Appearance Urine Clear; Color Urine Yellow; Glucose Urine UA Negative (Negative); Leukocyte Esterase Urine Negative (Negative); Nitrite Urine Negative (Negative); PH 5.5 (5.0-9.0); Specific Gravity - Urine 1.025 (1.005-1.025); Urine Blood Negative (Negative); Urine Ketones Negative (Negative); Urine Protein Negative (Neg-Trace)
[2024-11-25 22:49] LABS: Bacteria Urine None Seen (None Seen); Hyaline Casts Urine 0-2 /LPF (0-2); RBC Urine 0-2 /HPF (0-2); WBC Urine 0-5 /HPF (0-5)
[2024-11-25 22:50] LABS: Glucose Random 109 mg/dL (60-115)
[2024-11-26 02:00] VITALS: BP 124/58; PULSE 66; RESP 18; TEMP 37.6; O2SAT 97
[2024-11-26] MEDS: Ketorolac Tromethamine 15 MG/ML VIAL IVPUSH (02:31)
[2024-11-26] MEDS: 0.9 % Sodium Chloride 1,000 ML 999 ML IV (02:32)
[2024-11-26] MEDS: ondansetron HCL 4 MG/2 ML VIAL IVPUSH (02:32)
--- NOTE | 2024-11-26 03:15 | ED_ITS ---
HPI - Nausea/Vomiting/Diarrhea General Chief complaint: Nausea/Vomiting/Diarrhea Stated complaint: vomitting x2days Time Seen by Provider: 11/26/24 02:01 Source: patient Limitations: no limitations History of Present Illness ED Provider: Natalia Santiago PA-C HPI Narrative: 29-year-old male presents with nausea vomiting diarrhea x2 days. The diarrhea has been going to subside, however the patient is still nauseous and vomiting. Denies abdominal pain, fever, cough cold symptoms or sick contacts with same symptoms. No recent hospitalization, use the antibiotics or travel. Associated nausea: Yes Related Data Previous Rx's ?Medication ?Instructions ?Recorded doxycycline hyclate 100 mg capsule 100 mg PO BID 7 days #13 caps 09/22/23 ciprofloxacin HCl 0.3 % eye drops 1 drp ophthalmic-Right Q4H 7 days 11/10/23 #2.5 mL cephalexin 500 mg capsule 500 mg PO QID 7 days #28 caps 05/11/24 ondansetron 4 mg disintegrating 4 mg PO Q8H PRN nausea and 08/19/24 tablet vomiting #4 tabs ondansetron HCl 4 mg tablet 4 mg PO Q8H PRN nausea and 11/26/24 vomiting #10 tabs Allergies Allergy/AdvReac Type Severity Reaction Status Date / Time No Known Allergies Allergy Verified 11/25/24 21:55 Review of Systems 2 Review of Systems: Yes all other systems are reviewed and are negative Constitutional: Constitutional: Denies fatigue and Denies fever(s) Cardiovascular: Cardiovascular: Denies chest pain Respiratory: Respiratory: Denies cough Gastrointestinal: Gastrointestinal: Denies abdominal pain, Reports diarrhea, Reports nausea and Reports vomiting Endocrine: Endocrine: Denies fatigue PMF Past Medical History Attestation statement: The following information was validated with the patient. Medical History No pertinent past medical history Social History Social History Alcohol intake: current Alcohol intake frequency: holidays/special occasions only Smoked in Last 30 Days: No Use of substances other than those prescribed or required for medical reasons: No Substance Use Type: Marijuana Advance Directives: No Advance Directives Information Provided: Yes Physical Exam 2 Vital Signs: Vital Signs: Last Vital Signs Temp 99.6 F 11/26/24 02:00 Pulse 66 11/26/24 02:00 Resp 18 11/26/24 02:00 BP 124/58 L 11/26/24 02:00 Pulse Ox 97 11/26/24 02:00 O2 Del Method Room Air 11/26/24 02:00 BMI result Body Mass Index 21.3 Const: Other: Alert well-appearing Orientation/consciousness: patient oriented x3 Resp: Effort & Inspection: normal respiratory effort Cardio: Other: Normal peripheral perfusion GI: Other: Soft nondistended nontender no guarding Skin: Other: Warm dry no rash Neuro: General: patient oriented x3, no focal motor deficits and CN's II-XI intact bilaterally Psych: Other: Cooperative Medications Administered Discontinued Medications Generic Name Dose Route Start Last Admin Trade Name Freq PRN Reason Stop Dose Admin Sodium Chloride 1,000 mls @ 999 mls/hr 11/26/24 02:15 11/26/24 02:32 Ns IV 11/26/24 03:15 999 mls/hr .Q1H1M WILLIAM Administration Ketorolac Tromethamine 15 mg 11/26/24 02:26 11/26/24 02:31 Ketorolac Tromethamine 15 Mg/Ml Vial IVPUSH 11/26/24 02:27 15 mg ONCE ONE Administration Ondansetron HCl 4 mg 11/26/24 02:01 11/26/24 02:32 Ondansetron Hcl 4 Mg/2 Ml Vial IVPUSH 11/26/24 02:02 4 mg ONCE ONE Administration Medical Decision Making Medical Decision Making MDM Narrative: 29-year-old male presents with nausea vomiting diarrhea x2 days. The diarrhea has been going to subside, however the patient is still nauseous and vomiting. Denies abdominal pain, fever, cough cold symptoms or sick contacts with same symptoms. No recent hospitalization, use the antibiotics or travel. No chronic issues History: Per patient I have considered the following differential diagnoses: Viral gastroenteritis, diverticulitis, C diff, traveler's diarrhea Plan: This is likely viral gastroenteritis given such illness has been prevalent within the community. Screening labs were already obtained from triage, they are unremarkable. Patient's abdominal exam was unremarkable, no indication for imaging. He has no risk factors for C diff or traveler's diarrhea. We will be giving IV fluid And antiemetic. I have independently reviewed the following tests: Labs: Leukocytosis, not anemic, no electrolyte abnormality Lab Data 11/25/24 22:14 11/25/24 22:14 Labs: Lab Results 11/25/24 11/25/24 Range/Units 22:14 22:35 WBC 13.7 H (4.8-10.8) X10*3/uL RBC 5.08 (4.60-5.80) X10*6/uL Hgb 15.0 (14.0-18.0) g/dl Hct 43.4 (42.0-52.0) % MCV 85.4 (80.0-98.0) fL MCH 29.5 (27.0-33.0) pg MCHC 34.6 (31.0-36.0) g/dl RDW 13.1 (11.0-16.0) % Plt Count 264 (160-400) X10*3/uL MPV 8.6 L (9.4-12.4) fL Immature Gran % (Auto) 0.4 (0.0-0.4) % Neut % (Auto) 85.6 H (45-73) % Lymph % (Auto) 7.5 L (20-40) % Coal % (Auto) 6.2 (2-11) % Eos % (Auto) 0.1 (0-4) % Baso % (Auto) 0.2 (0-2) % Lymph # (Auto) 1.0 L (1.2-4.9) X10*3/uL Coal # (Auto) 0.9 (0.1-1.2) X10*3/uL Eos # (Auto) 0.0 (0.0-0.4) X10*3/uL Baso # (Auto) 0.0 (0.0-0.2) X10*3/uL Abs Immat Gran (auto) 0.05 H (0.00-0.03) X10*3/uL Absolute Neuts (auto) 11.7 H (2.0-8.3) x10*3/uL Absolute Nucleated RBC 0.000 (0.0-0.012) X10*3/uL Nucleated RBC % (auto) 0.0 (0.0-0.2) /100WBC Sodium 140 (135-145) mmol/L Potassium 3.8 (3.3-5.1) mmol/L Chloride 106 (96-108) mmol/L Carbon Dioxide 26 (22-29) mmol/L Anion Gap 12 (12-20) BUN 12 (9-16) mg/dL Creatinine 0.75 (0.5-1.4) mg/dL Estim Creat Clear Calc 166.1 Estimated GFR > 60 Random Glucose 109 (60-115) mg/dL Calcium 8.7 D (8.4-10.2) mg/dL Total Bilirubin 0.5 (0.0-1.0) mg/dL AST 22 (5-37) U/L ALT 19 (0-40) U/L Alkaline Phosphatase 43 (39-117) U/L Total Protein 6.9 (6.5-8.0) g/dL Albumin 3.9 (3.5-5.0) g/dL Urine Color Yellow Urine Appearance Clear Urine pH 5.5 (5.0-9.0) Ur Specific [place] 1.025 (1.005-1.025) Urine Protein Negative (Neg-Trace) mg/dL Urine Glucose (UA) Negative (Negative) mg/dL Urine Ketones Negative (Negative) mg/dL Urine Blood Negative (Negative) Urine Nitrite Negative (Negative) Ur Leukocyte Esterase Negative (Negative) Urine RBC 0-2 (0-2) /HPF Urine WBC 0-5 (0-5) /HPF Ur Squamous Epith Cells 3-5 (0-2) /HPF Urine Bacteria None Seen (None Seen) Hyaline Casts 0-2 (0-2) /LPF Discharge Plan Discharge Clinical Impression: Gastroenteritis Patient Disposition: Home, Self-Care Instructions: Gastroenteritis (ED) Additional Instructions: You had no lab abnormalities, this is a virus causing your symptoms. This illness has been prevalent within the community. See home care instructions. Uses Zofran as needed for nausea. Follow up with your primary care provider as needed. Prescriptions: New ondansetron HCl 4 mg tablet 4 mg PO Q8H PRN (Reason: nausea and vomiting) Qty: 10 0RF No Action ciprofloxacin HCl 0.3 % drops 1 drp ophthalmic-Right Q4H 7 Days Qty: 2.5 0RF cephalexin 500 mg capsule 500 mg PO QID 7 Days Qty: 28 0RF ondansetron 4 mg tablet,disintegrating 4 mg PO Q8H PRN (Reason: nausea and vomiting) Qty: 4 0RF doxycycline hyclate 100 mg capsule 100 mg PO BID 7 Days Qty: 13 0RF Stand Alone Forms: Work/School Release Print Language: Citizen Of [place]
[2024-11-26 03:42] VITALS: BP 131/68; PULSE 59; RESP 14; TEMP 37.2; O2SAT 97
== END 2024-11-26 03:49 | disposition home or self-care (01) ==
PROVIDERS: Emergency Provider Emergency Medicine
DX: K52.9 Noninfective gastroenteritis and colitis, unspecified (principal); R11.2 Nausea with vomiting, unspecified
CPT/HCPCS: 36415; 80053; 81001; 85025; 96374; 96375; 99284; 99285; J1885; J2405